=== PATIENT | female | born 1965 | race Caucasian/White ===

== ENCOUNTER 2019-07-29 18:42 | Emergency (ER) | payer MEDICAID ==
[~2019-07-29] VITALS: Ht 160 cm; Wt 68.0 kg
[2019-07-29 18:45] VITALS: BP_SYST 152
--- NOTE | 2019-07-29 21:17 | NUR ---
Patient to ER CHAIR to gown for evaluation. Side rails up. Report given to ROBERT VÁSQUEZ.
--- NOTE | 2019-07-29 21:29 | NUR ---
Patient complains of left thumb burning sensation. Pt states she was trying to put a stroller away but her thumb bent backwards. The next day it was swollen and had wrapped it up. CMS is intact. Per patient pain is radiating down to wrist. No other injuries/complaints per patient or noted.
--- NOTE | 2019-07-29 21:40 | NUR ---
ER at bedside examining patient.
[2019-07-29 22:02] VITALS: BP_SYST 143
--- NOTE | 2019-07-29 22:02 | NUR ---
Patient given written and verbal discharge instructions and verbalizes understanding. ER MD discussed with patient the results and treatment provided. Patient in stable condition. ID arm band removed. No Rx given. Patient educated on pain management and to follow up with PMD. Pain Scale 0. Opportunity for questions provided and answered. Medication side effect fact sheet provided.
== END 2019-07-29 22:02 | disposition home or self-care (01) ==
LOC: SED 18:42
DX: S69.82XA Other specified injuries of left wrist, hand and finger(s), initial encounter (principal); W23.0XXA Caught, crushed, jammed, or pinched between moving objects, initial encounter; Y93.89 Activity, other specified; Y92.810 Car as the place of occurrence of the external cause; Y99.8 Other external cause status
CPT/HCPCS: 73140-TC; 99283